=== PATIENT | female | born 1960 | race Caucasian/White ===

== ENCOUNTER → 2017-09-23 | Day surgery (SDC) | payer OTHER ==
[~2017-09-23] VITALS: Ht 170.2 cm; Wt 102.1 kg
[~2017-09-23] MED LIST: CIPRO500 M1 PO; FISH OIL 1,0001 EAC2 PO; METFORMIN HCL500 M2 PO
--- NOTE | 2017-09-23 12:52 | Operative Report ---
Operative/Inv Procedure Report Surgery Date: 09/23/17 Name of Procedure: urethral sling, cystoscopy Pre-Operative Diagnosis: stress incontinence Post-Operative Diagnosis: same Estimated Blood Loss: 50ml to 100ml Surgeon/Branch Office Administrator: Jelena Ospina MD Anesthesia: laryngeal mask airway Implants: vaginal mesh Complications: none Condition: stable Operative Indication: stress incontinence Operative/Procedure Note Note: 56-year-old female with a history of stress urinary incontinence for 4 years. She was very bothered by the leakage and all and voided frequently to preempt leakage. She was very interested in this urethral sling. She was given the risks benefits and alternatives in the office as well as in the holding area. All questions were answered. Consent was signed. She understood the risks of vaginal mesh. Patient was taken to the operating placed on the operating table in the supine position. Timeout was performed. IV antibiotics were infused. IV sedation was started however needed to be changed over to LMA due to deep breathing difficulties. (I was not aware distally end of the case.) She was placed in the dorsal lithotomy position. She was shaved and the genitalia region and then prepped and draped in the standard sterile fashion. Oro catheter was placed in the bladder was emptied. 1% lidocaine with epinephrine was infiltrated into the vagina beneath the urethra. Incision was made proximal 2 inches in length suburethrally. Vaginal flaps are created taking care not to injure the urethra. The Altis Sling kit was then opened and the trochars used to place the mesh sling in a tension-free manner with DeBakey between the sling and the mesh. The tightening Prolene stitch was then cut and the area was grossly irrigated with bacitracin irrigation. Incision was closed with 3-0 Vicryl running locking every third suture. There is no vaginal mesh in the fornices. The Oro catheter was removed and the bladder was globally inspected. The anatomy was within normal limits and the ureteral orifices were in their normal location. There is no mesh in the bladder or the urethra. The bladder was emptied. The vagina was packed with 2 inch vaginal packing impregnated with bacitracin ointment. The sponge and needle count were correct at the end of the case and the patient tolerated the procedure well. Findings: No mesh in the bladder, urethra, or vaginal fornices. Discharge Disposition: Same Day Admissions
== END ==
LOC: STS 01:56
DX: N39.3 Stress incontinence (female) (male) (principal); F17.200 Nicotine dependence, unspecified, uncomplicated; R05 Cough; M16.10 Unilateral primary osteoarthritis, unspecified hip; E66.9 Obesity, unspecified; Z68.35 Body mass index [BMI] 35.0-35.9, adult
CPT/HCPCS: C1771; J0131; J0690; J2250

== ENCOUNTER → 2017-09-26 | Day surgery (SDC) | payer OTHER ==
[2007-04-16 17:49] VITALS: BP 150/95
--- NOTE | 2017-09-26 11:26 | Operative Report ---
Operative/Inv Procedure Report Surgery Date: 09/26/17 Name of Procedure: Right carpal tunnel release Pre-Operative Diagnosis: Right carpal tunnel syndrome Post-Operative Diagnosis: Same Estimated Blood Loss: scant Surgeon/Mule Driver: Ayad GARCIA,Avel Anesthesia: moderate sedation, block Drains: None Specimens: None Tourniquet: 25 minutes Complications: None Condition: Stable Operative Indication: Patient is a 56-year-old woman who has a history of gradually worsening right hand pain and paresthesias. She was evaluated recently and was diagnosed with carpal tunnel syndrome. Patient wished to proceed with definitive management but we needed to confirm diagnosis and extent of disease. She had nerve studies done which confirmed diagnosis. Since she has ongoing symptoms despite conservative measures, she wished to proceed with carpal tunnel release. Risks, benefits and expectations of the surgical procedure were discussed which included but were not limited to persistent wrist pain and paresthesias, need for subsequent surgery, anesthesia risks, injury to blood vessel or nerve, infection. Operative/Procedure Note Note: Patient was brought to the operating room and transferred to the operating table. Once under appropriate anesthesia the right upper extremity was prepped and draped in standard fashion. Preoperative IV and box were given prophylactically. The standard incision was made along the ulnar border of the thenar crease in line with the radial border of the ring finger. The incision was taken down to the underlying superficial transverse fibers. These were incised in line with the skin incision. I use a [place] to sweep the thenar musculature which extended across. This exposed the deep transverse ligament. I then use Tobias knife to enter through the deep transverse ligament just barely and then a [place] retractor was placed underneath the deep transverse ligament and the deep transverse ligament was released proximally distal from my small rent that was made with a knife. Care was taken not to plunge into the carpal tunnel. The deep transverse ligament was very thick and almost slightly calcified in the most distal aspect of the incision area. I confirmed release with a blunt hemostat. I then checked release proximally as well and again I confirm the release. The contents of the carpal tunnel were evaluated no evidence of mass or other abnormality. The median nerve appeared to be very flattened. No aberrant vasculature within the carpal tunnel. I was satisfied with the release. Copious irrigation of the wound followed. I then closed the skin with interrupted horizontal mattress sutures using nylon. Appropriate just his were applied and patient was awakened and taken to recovery room in good condition. Tourniquet was deflated after the dressings were applied. The tourniquet was deflated at 25 minutes Discharge Disposition: PACU
== END ==
LOC: STS 04:59
DX: G56.01 Carpal tunnel syndrome, right upper limb (principal); E11.9 Type 2 diabetes mellitus without complications; Z79.84 Long term (current) use of oral hypoglycemic drugs; F17.200 Nicotine dependence, unspecified, uncomplicated
CPT/HCPCS: J0690; J2001; J2250